=== PATIENT | female | born 1950 | race Caucasian/White ===

== ENCOUNTER 2017-08-30 18:24 | Inpatient (IN) | payer OTHER ==
[~2017-08-30] VITALS: Ht 152.4 cm; Wt 79.3 kg
[~2017-08-30 18:24] MED LIST: ADVIL200 MG PO; BLOOD PRESSURE PILL PO; IRBESARTAN-HCT1 EACH PO; LIPITOR20 MG PO; OMEPRAZOLE20 MG PO
[2017-08-30 19:15] LABS: HEMOGLOBIN 15.1 G/DL (11.9-15.5); MCH 31.6 PG (29.0-34.0); MCHC 35.1 G/DL (30.0-36.0); PLATELET COUNT 216 K/uL (156-360); RED BLOOD COUNT 4.78 M/uL (3.80-5.20); WHITE BLOOD COUNT 16.9 K/uL (4.1-10.2)
[2017-08-30 19:31] LABS: ALBUMIN 4.4 g/dL (3.2-4.8)
[2017-08-30 19:32] LABS: CHLORIDE 103 mEq/L (99-109); POTASSIUM 3.4 mEq/L (3.7-5.4); SODIUM 139 mEq/L (136-147)
[2017-08-30 19:34] LABS: GLUCOSE 199 mg/dL (70-99); TOTAL PROTEIN 7.3 g/dL (6.4-8.3)
[2017-08-30 19:36] LABS: TOTAL BILIRUBIN 0.7 mg/dL (0.0-1.0)
[2017-08-30 19:37] LABS: ALKALINE PHOSPHATASE 92 IU/L (3-129)
[2017-08-30 19:38] LABS: CREATININE 0.8 mg/dL (0.6-1.3); GFR ESTIMATE (CALCULATED) > 59 mL/min/
[2017-08-30 19:39] LABS: AST (GOT) 21 IU/L (2-34); UREA NITROGEN (BUN) 20 mg/dL (9-23)
[2017-08-30 19:40] LABS: ALT (GPT) 29 IU/L (3-49)
[2017-08-30 19:41] LABS: LIPASE 6 U/L (1.0-51.0)
[2017-08-30 21:50] LABS: APPEARANCE CLOUDY ((CLEAR)); BILIRUBIN NEGATIVE; BLOOD MODERATE; COLOR YELLOW ((YELLOW)); GLUCOSE (STRIP) >=500; KETONES 20; LEUKOCYTES TRACE; NITRITE NEGATIVE; PROTEIN (STRIP) NEGATIVE; SPECIFIC GRAVITY 1.024 (1.000-1.030); UROBILINOGEN 0.2 MG/DL (0.2-1.0)
[2017-08-30 22:03] LABS: BACTERIA 3+ /HPF; EPITHELIAL CELLS 3+ /HPF; MUCUS NONE SEEN /LPF; UCUL ADDED? YES; WHITE BLOOD CELLS 0-5 /HPF (0-5)
[2017-08-30] MEDS ORDERED: MOBIC7.5 MG PO (22:41)
[2017-08-31 03:28] LABS: HEMATOCRIT 39.7 % (36.0-46.0); HEMOGLOBIN 13.7 G/DL (11.9-15.5); MCH 31.1 PG (29.0-34.0); MCHC 34.5 G/DL (30.0-36.0); PLATELET COUNT 209 K/uL (156-360); RBC DIS.WIDTH-CV 12.1 % (11.8-14.6); RBC DIS.WIDTH-SD 39.8 % (39-53); RED BLOOD COUNT 4.41 M/uL (3.80-5.20); WHITE BLOOD COUNT 13.6 K/uL (4.1-10.2)
[2017-08-31 03:36] LABS: ALBUMIN 4.2 g/dL (3.2-4.8)
[2017-08-31 03:37] LABS: CHLORIDE 106 mEq/L (99-109); POTASSIUM 3.7 mEq/L (3.7-5.4); SODIUM 140 mEq/L (136-147)
[2017-08-31 03:39] LABS: GLUCOSE 195 mg/dL (70-99); TOTAL PROTEIN 6.7 g/dL (6.4-8.3)
[2017-08-31 03:42] LABS: ALKALINE PHOSPHATASE 84 IU/L (3-129)
[2017-08-31 03:43] LABS: GFR ESTIMATE (CALCULATED) 58 mL/min/
[2017-08-31 03:44] LABS: AST (GOT) 21 IU/L (2-34); TOTAL BILIRUBIN 0.4 mg/dL (0.0-1.0); UREA NITROGEN (BUN) 19 mg/dL (9-23)
[2017-08-31 03:45] LABS: ALT (GPT) 28 IU/L (3-49)
[2017-08-31 07:15] VITALS: BP 138/63
[2017-08-31 15:54] VITALS: BP 142/72
[2017-08-31 23:45] VITALS: BP 154/69
[2017-09-01 06:53] LABS: BASOPHIL (%) 0.1 % (0-1); EOSINOPHIL (%) 0 % (0-5); HEMATOCRIT 38.7 % (36.0-46.0); HEMOGLOBIN 13.4 G/DL (11.9-15.5); IMMATURE GRANULOCYTE (%) 0.8 % (0.0-0.7); LYMPHOCYTE (%) 10.3 % (15-42); LYMPHOCYTE COUNT 1.9 K/uL (1.0-2.8); MCH 30.9 PG (29.0-34.0); MCHC 34.6 G/DL (30.0-36.0); MCV 89.2 FL (83-99); MONOCYTE (%) 7.1 % (3-12); MONOCYTE COUNT 1.3 K/uL (0-0.8); NEUTROPHIL (%) 81.7 % (45-76); NEUTROPHIL COUNT 15.2 K/uL (1.8-6.4); PLATELET COUNT 221 K/uL (156-360); RBC DIS.WIDTH-SD 39.6 % (39-53); RED BLOOD COUNT 4.34 M/uL (3.80-5.20); WHITE BLOOD COUNT 18.6 K/uL (4.1-10.2)
[2017-09-01 07:13] LABS: CHLORIDE 98 MEQ/L (99-109); CREATININE 0.7 MG/DL (0.6-1.3); GFR ESTIMATE (CALCULATED) > 59 mL/min/; GLUCOSE 119 mg/dL (70-99); POTASSIUM 3.1 MEQ/L (3.7-5.4); SODIUM 136 MEQ/L (136-147); UREA NITROGEN (BUN) 15 mg/dL (9-23)
[2017-09-01 07:37] VITALS: BP 176/83
[2017-09-01 12:39] VITALS: BP 190/92
[2017-09-01 13:47] VITALS: BP 170/79
[2017-09-01 16:38] VITALS: BP 139/66
[2017-09-01 23:57] VITALS: BP 132/65
[2017-09-02] VITALS (8 sets, daily range): BP systolic 138–210; BP diastolic 63–98
[2017-09-02 06:42] LABS: BASOPHIL (%) 0.2 % (0-1); EOSINOPHIL (%) 0 % (0-5); HEMOGLOBIN 13.4 G/DL (11.9-15.5); IMMATURE GRANULOCYTE (%) 0.5 % (0.0-0.7); LYMPHOCYTE (%) 17.1 % (15-42); LYMPHOCYTE COUNT 2.2 K/uL (1.0-2.8); MCH 30.9 PG (29.0-34.0); MCHC 34.4 G/DL (30.0-36.0); MCV 89.9 FL (83-99); MONOCYTE (%) 7.5 % (3-12); NEUTROPHIL (%) 74.7 % (45-76); NEUTROPHIL COUNT 9.6 K/uL (1.8-6.4); PLATELET COUNT 202 K/uL (156-360); RBC DIS.WIDTH-CV 12.3 % (11.8-14.6); RED BLOOD COUNT 4.34 M/uL (3.80-5.20); WHITE BLOOD COUNT 12.9 K/uL (4.1-10.2)
[2017-09-02 07:02] LABS: CHLORIDE 102 MEQ/L (99-109); CREATININE 0.6 MG/DL (0.6-1.3); GFR ESTIMATE (CALCULATED) > 59 mL/min/; GLUCOSE 107 mg/dL (70-99); SODIUM 137 MEQ/L (136-147); UREA NITROGEN (BUN) 16 mg/dL (9-23)
[2017-09-02 07:03] LABS: POTASSIUM 3.9 MEQ/L (3.7-5.4)
[2017-09-03 06:53] LABS: BASOPHIL (%) 0.2 % (0-1); EOSINOPHIL (%) 0.2 % (0-5); HEMATOCRIT 41.6 % (36.0-46.0); HEMOGLOBIN 14.5 G/DL (11.9-15.5); IMMATURE GRANULOCYTE (%) 0.9 % (0.0-0.7); LYMPHOCYTE (%) 15.9 % (15-42); LYMPHOCYTE COUNT 2.1 K/uL (1.0-2.8); MCHC 34.9 G/DL (30.0-36.0); MCV 89.1 FL (83-99); MONOCYTE (%) 7.5 % (3-12); NEUTROPHIL (%) 75.3 % (45-76); NEUTROPHIL COUNT 9.9 K/uL (1.8-6.4); PLATELET COUNT 219 K/uL (156-360); RBC DIS.WIDTH-CV 12.4 % (11.8-14.6); RBC DIS.WIDTH-SD 40.6 % (39-53); RED BLOOD COUNT 4.67 M/uL (3.80-5.20); WHITE BLOOD COUNT 13.2 K/uL (4.1-10.2)
[2017-09-03 07:08] LABS: CHLORIDE 100 MEQ/L (99-109); CREATININE 0.5 MG/DL (0.6-1.3); GFR ESTIMATE (CALCULATED) > 59 mL/min/; GLUCOSE 114 mg/dL (70-99); POTASSIUM 3.5 MEQ/L (3.7-5.4); SODIUM 136 MEQ/L (136-147); UREA NITROGEN (BUN) 20 mg/dL (9-23)
[2017-09-03 07:12] VITALS: BP 158/82
[2017-09-03 15:56] VITALS: BP 58/37
[2017-09-03 16:35] LABS: HEMATOCRIT 44.2 % (36.0-46.0); HEMOGLOBIN 15.2 G/DL (11.9-15.5); MCH 30.6 PG (29.0-34.0); MCHC 34.4 G/DL (30.0-36.0); MCV 89.1 FL (83-99); PLATELET COUNT 270 K/uL (156-360); RBC DIS.WIDTH-CV 12.4 % (11.8-14.6); RBC DIS.WIDTH-SD 40.7 % (39-53); RED BLOOD COUNT 4.96 M/uL (3.80-5.20); WHITE BLOOD COUNT 11.2 K/uL (4.1-10.2)
[2017-09-03 16:55] LABS: TROP-I INTERPRETATION NEGATIVE; TROPONIN-I 0.09 ng/mL (0.0-0.30)
[2017-09-03 17:04] LABS: CHLORIDE 99 MEQ/L (99-109); POTASSIUM 3.3 MEQ/L (3.7-5.4); SODIUM 135 MEQ/L (136-147)
[2017-09-03 17:13] LABS: CREATININE 0.9 MG/DL (0.6-1.3); GFR ESTIMATE (CALCULATED) > 59 mL/min/; UREA NITROGEN (BUN) 21 mg/dL (9-23)
[2017-09-03 17:15] LABS: GLUCOSE 172 mg/dL (70-99)
[2017-09-03 17:42] VITALS: BP 97/57
[2017-09-03 18:11] VITALS: BP 109/57
[2017-09-03 20:00] VITALS: BP 92/46
[2017-09-03 21:01] LABS: TROP-I INTERPRETATION NEGATIVE
[2017-09-03 23:55] VITALS: BP 102/56
[2017-09-04 04:00] VITALS: BP 123/57
[2017-09-04 05:34] LABS: HEMATOCRIT 40.7 % (36.0-46.0); HEMOGLOBIN 13.6 G/DL (11.9-15.5); MCH 30.4 PG (29.0-34.0); MCHC 33.4 G/DL (30.0-36.0); MCV 90.8 FL (83-99); PLATELET COUNT 194 K/uL (156-360); RBC DIS.WIDTH-CV 12.7 % (11.8-14.6); RBC DIS.WIDTH-SD 42.4 % (39-53); RED BLOOD COUNT 4.48 M/uL (3.80-5.20); WHITE BLOOD COUNT 10.1 K/uL (4.1-10.2)
[2017-09-04 06:07] LABS: TROP-I INTERPRETATION NEGATIVE; TROPONIN-I 0.05 ng/mL (0.0-0.30)
[2017-09-04 06:23] LABS: CHLORIDE 103 MEQ/L (99-109); CREATININE 0.9 MG/DL (0.6-1.3); GFR ESTIMATE (CALCULATED) > 59 mL/min/; POTASSIUM 3.5 MEQ/L (3.7-5.4); SODIUM 136 MEQ/L (136-147); UREA NITROGEN (BUN) 30 mg/dL (9-23)
[2017-09-04 06:27] LABS: GLUCOSE 94 mg/dL (70-99)
[2017-09-04 07:23] VITALS: BP 138/70
[2017-09-04 11:36] VITALS: BP 122/66
[2017-09-04 15:13] VITALS: BP 135/63
[2017-09-04] MEDS ORDERED: PRAVASTATIN SOD80 MG PO (17:43)
[2017-09-04] MEDS ORDERED: TAMSULOSIN HCL0.4 MG PO (17:43)
[2017-09-04] MEDS ORDERED: TYLENOL REGULA325 MG PO (17:44)
== END 2017-09-04 19:25 | disposition home or self-care (01) | DRG 694 ==
LOC: EME 18:24 → EXP 18:24 → EDOF 23:05 → 5EAST 23:05 → ENRESERV 23:42 → 5EAST 08-31 00:34 → ENRESERV 09-03 17:02 → 4EAST 09-03 17:16
PROVIDERS: Family Medicine; Internal Medicine
DX: N20.2 Calculus of kidney with calculus of ureter (principal); N13.1 Hydronephrosis with ureteral stricture, not elsewhere classified; N39.0 Urinary tract infection, site not specified; E87.6 Hypokalemia; N81.10 Cystocele, unspecified; I10 Essential (primary) hypertension; E78.5 Hyperlipidemia, unspecified; E11.65 Type 2 diabetes mellitus with hyperglycemia; K21.9 Gastro-esophageal reflux disease without esophagitis; Z68.33 Body mass index [BMI] 33.0-33.9, adult; Z85.3 Personal history of malignant neoplasm of breast; Z90.49 Acquired absence of other specified parts of digestive tract; Z90.11 Acquired absence of right breast and nipple; Z85.828 Personal history of other malignant neoplasm of skin; Z87.442 Personal history of urinary calculi
CPT/HCPCS: 74177; 74420; 80048; 80048 91; 80053; 81003; 82948; 83605; 83690; 84484; 85025; 85027; 87040; 87086; 87086 GA; 93005; 94799; 99281; 99285; C1758; C2625; J0360; J0696; J1100; J2250; J2405; J2765; J3010; J7030